=== PATIENT | female | born 1990 | race African-American/Black ===

== ENCOUNTER 2022-03-16 17:17 | Emergency (ER) | payer OTHER, SELFPAY | END 2022-03-16 18:29 | disposition home or self-care (01) | LOC: CSHERS 17:17 | DX: S06.0X0A Concussion without loss of consciousness, initial encounter (principal); J45.909 Unspecified asthma, uncomplicated; W01.0XXA Fall on same level from slipping, tripping and stumbling without subsequent striking against object, initial encounter | CPT/HCPCS: 99283 ==